=== PATIENT | male | born 1940 | race Caucasian/White ===

== ENCOUNTER 2017-04-28 14:56 | Emergency (ER) | payer MEDICARE, OTHER ==
[2017-04-28] MEDS ORDERED: Ondansetron INJ* 2 MG/ML VIAL IV ONE (16:34)
[2017-04-28] MEDS ORDERED: NS 0.9% 1000 ML* 1,000 ML IV ONE (16:34)
--- NOTE | 2017-04-28 17:06 | RAD ---
INDICATION: Syncope COMPARISON: Similar chest x-ray September 18, 2014 TECHNIQUE: Single AP portable view of the chest was obtained. FINDINGS: Image quality is compromised due to the relative inferiority of a portable chest x-ray. The heart and mediastinum exhibit normal size and contour. The lungs are grossly clear. There is no evidence of a large pleural effusion. Visualized bones are normal for the patient's age. IMPRESSION: No radiographic evidence for acute cardiopulmonary abnormality on this portable chest x-ray.
[2017-04-28 17:58] LABS: Hematocrit 49 % (42-52); Hemoglobin 15.8 g/dl (14.0-18.0); Mean Corpuscular HGB Conc 32 g/dl (31-36); Mean Corpuscular Hemoglobin 29 pg (27-31); Mean Corpuscular Volume 88 fL (80-94); Mean Platelet Volume 11 um3 (7.4-10.4); Red Blood Count 5.54 10^6/ul (4.0-5.4); Red Cell Distribution Width 15 % (10.5-15); White Blood Count 13.9 10^3/ul (3.5-10.8)
[2017-04-28 18:05] LABS: C Reactive Protein 6.01 mg/L (< 5.00); Lipase 22 U/L (11.0-82.0); Magnesium 1.5 mg/dL (1.9-2.7)
[2017-04-28 18:11] LABS: Digoxin < 0.2 ng/ml (0.8-2.0)
[2017-04-28 18:11] LABS: Urine Bacteria Absent (Absent); Urine Bilirubin Negative (Negative); Urine Glucose Negative (Negative); Urine Nitrite Negative (Negative)
[2017-04-28 18:49] LABS: ALT 12 U/L (7-52); AST 18 U/L (13-39); Albumin 3.9 g/dL (3.2-5.2); Alkaline Phosphatase 57 U/L (34-104); Anion Gap 11 mmol/L (2-11); BUN/Creatinine Ratio 24.7 (8-20); Blood Urea Nitrogen 18 mg/dL (6-24); CO2 Carbon Dioxide 21 mmol/L (22-32); Calcium 9.1 mg/dL (8.6-10.3); Chloride 103 mmol/L (101-111); EGFR African American 134.3 (>60); EGFR Non-African American 104.5 (>60); Globulin 2.7 g/dL (2-4); Glucose 113 mg/dL (70-100); Potassium 4.1 mmol/L (3.5-5.0); Sodium 135 mmol/L (133-145); Total Protein 6.6 g/dL (6.4-8.9)
--- NOTE | 2017-04-28 19:22 | RAD ---
CLINICAL HISTORY: Abdominal pain and diarrhea. Relevant surgical history includes cholecystectomy. COMPARISON: None TECHNIQUE: Noncontrast CT examination of the abdomen and pelvis from the lung bases through the initial tuberosities. FINDINGS: VISUALIZED LUNG BASES: There are mild hypoventilatory changes the bilateral lung bases. Otherwise the visualized lung bases are grossly clear. There is no pleural effusion. There is coarse atherosclerotic calcification at the aortic ring ABDOMEN AND PELVIS: Evaluation of the solid organs and vasculature is limited without intravenous contrast. The liver, spleen, pancreas and adrenal glands are grossly normal in appearance. The gallbladder is surgically absent. The kidneys are normal in appearance without focal mass, calcification or signs of hydronephrosis. Evaluation of the gastrointestinal tract is limited without oral contrast. The small and large bowel are not distended.The patient's normal appendix is identified in the right lower quadrant measuring 5 mm in diameter (coronal image 63). There are colonic diverticuli the distal colon becoming more concentrated the rectosigmoid colon. None exhibit focal inflammatory change including bowel wall thickening. There is no gross retroperitoneal or mesenteric lymphadenopathy. The prostate is enlarged measuring 5.9 x 6.4 x 6.7 cm. Faint coarse calcification is noted in the anterior prostate gland. There is moderate calcified atherosclerosis of the abdominal aorta extending into the bilateral iliac arteries. Multilevel degenerative changes of the lower thoracic and lumbar spine includes loss of intervertebral disc height, marginal osteophyte formation and vacuum disc phenomenon at L5/S1.There are no sinister bone lesions. IMPRESSION: 1. Diverticulosis without focal inflammatory changes associated with diverticulitis. 2. Coarse calcification of the aortoiliac arterial system extending to the bilateral femoral arteries. Please correlate to signs or symptoms of lower extremity arterial insufficiency. 3. Prostatomegaly. 4. Additional chronic, degenerative and iatrogenic findings as described in the body of the report.
[2017-04-28 20:34] LABS: Troponin I 0.03 ng/mL (<0.04)
[2017-04-28] MEDS ORDERED: Magnesium Sulfate 2 GM IV* 2 GM/50 ML BAG IVPB ONE (20:43)
[2017-04-28] MEDS ORDERED: Magnesium Oxide TAB* 400 MG PO ONE ×2 (20:52)
--- NOTE | 2017-04-28 20:58 | ED ---
Alexa Hagen Edward, scribed for Abebe Avalos MD on 04/28/17 at 1624 . Complex/Multi-Sys Presentation - HPI Summary HPI Summary: 76 y/o male presents to the ED c/o diarrhea and ABD discomfort starting at 06: 00 today. Initially the pt had diarrhea every 10 minutes; it went down to about once every hour at around 12:00 today. Denies blood in stool. A little after 02: 00 the pt had a syncopal episode. The pt was lying down when it started. Denies CP, palpitations. Pt is unsure if he had a seizure or just had LOC but believes it was not a seizure. Associated sx: chills, fatigue. PMHx epilepsy - pt took his seizure medication at around noon today, heart murmur. Past medications reviewed on visit. Sx gallbladder surgery. - History Of Current Complaint Chief Complaint: EDAbdPain Time Seen by Provider: 04/28/17 16:15 Hx Obtained From: Patient Onset/Duration: Lasting Hours, Still Present Timing: Intermittent, Lasting: - once every 10 minutes initially, now once every hour Location: Pain At: - ABD Character: Dull - ABD discomfort Associated Signs And Symptoms: Positive: Syncope, Diarrhea, Abdominal Pain, Other - chills, fatigue - Allergies/Home Medications Allergies/Adverse Reactions: Allergies Allergy/AdvReac Type Severity Reaction Status Date / Time Morphine Allergy Altered Verified 09/18/14 13:09 Mental Status Sulfa Drugs Allergy Unknown Verified 12/07/12 11:07 Reaction Details decongestants Allergy See Comment Uncoded 12/07/12 11:07 ENVIRONMENTAL/SEASONAL Allergy Congestion Uncoded 12/07/12 11:07 HAYFEVER PMH/Surg Hx/FS Hx/Imm Hx Previously Healthy: No Endocrine/Hematology History: Denies: Hx Bone Marrow Disease, Hx Sickle Cell Disease Cardiovascular History: Reports: Hx Coronary Artery Disease, Hx Hypertension, Other Cardiovascular Problems/Disorders - atrial fibrillation, CAD GI History: Comment Only: Other GI Disorders - admitted with diarrhea Musculoskeletal History: Reports: Hx Arthritis - bilateral hands,, Hx Tendonitis - possible bilateral shoulders Sensory History: Reports: Hx Cataracts, Hx Contacts or Glasses - glasses Denies: Hx Hearing Aid Opthamlomology History: Reports: Hx Cataracts, Hx Contacts or Glasses - glasses Neurological History: Reports: Hx Migraine, Hx Seizures - current admission Psychiatric History: Reports: Hx Anxiety - Cancer History Cancer Type, Location and Year: MELANOMA/SKIN CA - Surgical History Surgery Procedure, Year, and Place: (14 years ago) CHOLECYSTECTOMY, [facility]. (35- 40 years ago) MELANOMA REMOVED FROM LEFT FOREARM. TONSILLECTOMY A CHILD. MULTIPLE SKIN CANCERS(BASAL CELLS) REMOVED, OFFICE. GROWTH (LIPOMA) REMOVED FROM RIGHT ARM, [facility]. COLONOSCOPIES, [facility] Hx Anesthesia Reactions: No Infectious Disease History: No Infectious Disease History: Reports: History Other Infectious Disease - enteric precautions per dr Luna Denlola: Traveled Outside the [place] in Last 30 Days - Family History Known Family History: Positive: Cardiac Disease, Diabetes, Other - CVA, CA - Social History Alcohol Use: Rare Alcohol Amount: states wine twice/wk Hx Substance Use: No Substance Use Type: Reports: None Hx Tobacco Use: No Smoking Status (MU): Never Smoked Tobacco Review of Systems Positive: Chills, Fatigue Eyes: Negative ENT: Negative Cardiovascular: Negative Respiratory: Negative Positive: Abdominal Pain, Diarrhea Genitourinary: Negative Musculoskeletal: Negative Skin: Negative Positive: Syncope Psychological: Normal All Other Systems Reviewed And Are Negative: Yes Physical Exam Triage Information Reviewed: Yes Vital Signs On Initial Exam: Initial Vitals Temp Pulse Resp BP Pulse Ox 99.5 F 107 16 163/95 96 04/28/17 15:02 04/28/17 15:02 04/28/17 15:02 04/28/17 15:02 04/28/17 15:02 Vital Signs Reviewed: Yes Appearance: Positive: Well-Appearing, No Pain Distress Skin: Positive: Warm, Skin Color Reflects Adequate Perfusion, Dry Head/Face: Positive: Normal Head/Face Inspection Eyes: Positive: EOMI, SHARYN ENT: Positive: Other - oral mucosa dry Neck: Positive: Supple, Nontender Respiratory/Lung Sounds: Positive: Clear to Auscultation, Breath Sounds Present Cardiovascular: Positive: RRR, Murmur Abdomen Description: Positive: Nontender, Soft Bowel Sounds: Positive: Hypoactive Musculoskeletal: Positive: Normal, Strength/ROM Intact Neurological: Positive: Normal, Sensory/Motor Intact, Alert, Oriented to Person Place, Time, Other - Shaky Psychiatric: Positive: Affect/Mood Appropriate Diagnostics - Vital Signs Vital Signs Temp Pulse Resp BP Pulse Ox 04/28/17 15:02 99.5 F 107 16 163/95 96 - Laboratory Lab Results: Lab Results 04/28/17 04/28/17 04/28/17 Range/Units 17:22 17:22 17:22 WBC (3.5-10.8) 10^3/ul RBC (4.0-5.4) 10^6/ul Hgb (14.0-18.0) g/dl Hct (42-52) % MCV (80-94) fL MCH (27-31) pg MCHC (31-36) g/dl RDW (10.5-15) % Plt Count (150-450) 10^3/ul MPV (7.4-10.4) um3 Neut % (Auto) (38-83) % Lymph % (Auto) (25-47) % [place] % (Auto) (1-9) % Eos % (Auto) (0-6) % Baso % (Auto) (0-2) % Absolute Neuts (auto) (1.5-7.7) 10^3/ul Absolute Lymphs (auto) (1.0-4.8) 10^3/ul Absolute Monos (auto) (0-0.8) 10^3/ul Absolute Eos (auto) (0-0.6) 10^3/ul Absolute Basos (auto) (0-0.2) 10^3/ul Absolute Nucleated RBC 10^3/ul Nucleated RBC % INR (Anticoag Therapy) 3.16 H (0.89-1.11) APTT 38.4 H (26.0-36.3) seconds Sodium 135 (133-145) mmol/L Potassium 4.1 (3.5-5.0) mmol/L Chloride 103 (101-111) mmol/L Carbon Dioxide 21 L (22-32) mmol/L Anion Gap 11 (2-11) mmol/L BUN 18 (6-24) mg/dL Creatinine 0.73 (0.67-1.17) mg/dL Est GFR ( Amer) 134.3 (>60) Est GFR (Non-Af Amer) 104.5 (>60) BUN/Creatinine Ratio 24.7 H (8-20) Glucose 113 H (70-100) mg/dL Calcium 9.1 (8.6-10.3) mg/dL Magnesium 1.5 L (1.9-2.7) mg/dL Total Bilirubin 0.80 (0.2-1.0) mg/dL AST 18 (13-39) U/L ALT 12 (7-52) U/L Alkaline Phosphatase 57 (34-104) U/L Troponin I 0.03 (<0.04) ng/mL C-Reactive Protein 6.01 H (< 5.00) mg/L B-Natriuretic Peptide 265 H ( - 100) pg/mL Total Protein 6.6 (6.4-8.9) g/dL Albumin 3.9 (3.2-5.2) g/dL Globulin 2.7 (2-4) g/dL Albumin/Globulin Ratio 1.4 (1-3) Lipase 22 (11.0-82.0) U/L Urine Color Urine Appearance Urine pH (5-9) Ur Specific [place] (1.010-1.030) Urine Protein (Negative) Urine Ketones (Negative) Urine Blood (Negative) Urine Nitrate (Negative) Urine Bilirubin (Negative) Urine Urobilinogen (Negative) Ur Leukocyte Esterase (Negative) Urine WBC (Auto) (Absent) Urine RBC (Auto) (Absent) Urine Bacteria (Absent) Urine Glucose (Negative) Digoxin < 0.2 L (0.8-2.0) ng/ml Valproic Acid 56.0 (50-100) mcg/mL 04/28/17 04/28/17 Range/Units 17:22 17:41 WBC 13.9 H (3.5-10.8) 10^3/ul RBC 5.54 H (4.0-5.4) 10^6/ul Hgb 15.8 (14.0-18.0) g/dl Hct 49 (42-52) % MCV 88 (80-94) fL MCH 29 (27-31) pg MCHC 32 (31-36) g/dl RDW 15 (10.5-15) % Plt Count 152 (150-450) 10^3/ul MPV 11 H (7.4-10.4) um3 Neut % (Auto) 91.6 H (38-83) % Lymph % (Auto) 3.1 L (25-47) % [place] % (Auto) 4.7 (1-9) % Eos % (Auto) 0.1 (0-6) % Baso % (Auto) 0.5 (0-2) % Absolute Neuts (auto) 12.7 H (1.5-7.7) 10^3/ul Absolute Lymphs (auto) 0.4 L (1.0-4.8) 10^3/ul Absolute Monos (auto) 0.6 (0-0.8) 10^3/ul Absolute Eos (auto) 0 (0-0.6) 10^3/ul Absolute Basos (auto) 0.1 (0-0.2) 10^3/ul Absolute Nucleated RBC 0 10^3/ul Nucleated RBC % 0 INR (Anticoag Therapy) (0.89-1.11) APTT (26.0-36.3) seconds Sodium (133-145) mmol/L Potassium (3.5-5.0) mmol/L Chloride (101-111) mmol/L Carbon Dioxide (22-32) mmol/L Anion Gap (2-11) mmol/L BUN (6-24) mg/dL Creatinine (0.67-1.17) mg/dL Est GFR ( Amer) (>60) Est GFR (Non-Af Amer) (>60) BUN/Creatinine Ratio (8-20) Glucose (70-100) mg/dL Calcium (8.6-10.3) mg/dL Magnesium (1.9-2.7) mg/dL Total Bilirubin (0.2-1.0) mg/dL AST (13-39) U/L ALT (7-52) U/L Alkaline Phosphatase (34-104) U/L Troponin I (<0.04) ng/mL C-Reactive Protein (< 5.00) mg/L B-Natriuretic Peptide ( - 100) pg/mL Total Protein (6.4-8.9) g/dL Albumin (3.2-5.2) g/dL Globulin (2-4) g/dL Albumin/Globulin Ratio (1-3) Lipase (11.0-82.0) U/L Urine Color Yellow Urine Appearance Clear Urine pH 5.0 (5-9) Ur Specific [place] 1.015 (1.010-1.030) Urine Protein Negative (Negative) Urine Ketones Negative (Negative) Urine Blood 2+ H (Negative) Urine Nitrate Negative (Negative) Urine Bilirubin Negative (Negative) Urine Urobilinogen Negative (Negative) Ur Leukocyte Esterase Negative (Negative) Urine WBC (Auto) Absent (Absent) Urine RBC (Auto) Trace(0-2/hpf) (Absent) Urine Bacteria Absent (Absent) Urine Glucose Negative (Negative) Digoxin (0.8-2.0) ng/ml Valproic Acid (50-100) mcg/mL Result Diagrams: 04/28/17 17:22 04/28/17 17:22 Lab Statement: Any lab studies that have been ordered have been reviewed, and results considered in the medical decision making process. - Radiology CXR Xray Interpretation: No Acute Changes - No radiographic evidence for acute cardiopulmonary abnormality on this portable chest x-ray. Radiology Interpretation Completed By: Radiologist - ED PHYSICIAN REVIEWS AND AGREES - CT ABD/PEL CT CT Interpretation: Positive (See Comments) - 1. Diverticulosis without focal inflammatory changes associated with diverticulitis. 2. Coarse calcification of the aortoiliac arterial system extending to the bilateral femoral arteries. Please correlate to signs or symptoms of lower extremity arterial insufficiency. 3. Prostatomegaly. 4. Additional chronic, degenerative and iatrogenic findings as described in the body of the report. CT Interpretation Completed By: Radiologist - ED PHYSICIAN REVIEWS AND AGREES - EKG 1 EKG Interpretation: 16:07 - AFIB @ [address] DEPRESSION IN LATERAL LEADS Re-Evaluation - Re-Evaluation 1 Re-Evaluation Time: 20:30 Comment: Discuss plan of care Complex Multi-Symp Course/Dx Course Of Treatment: IMPROVED IN THE ED. TOLERATED PO IN THE ED. PATIENT REPORTS HE IS IN AND OUT OF AFIB. NO CHEST PAIN. F/U PMD; RETURN IF WORSE. NO CRITICAL CARE TIME. - Diagnoses Provider Diagnoses: Hypomagnesemia, Dehydration, Diarrhea, Syncope Discharge - Discharge Plan Condition: Stable Disposition: HOME Patient Education Materials: Acute Diarrhea (ED), Dehydration (ED), Syncope (ED ), Hypomagnesemia (ED) Referrals: Lynn Georges MD [Primary Care Provider] - Additional Instructions: FOLLOW UP WITH YOUR DOCTOR. RETURN TO THE EMERGENCY DEPARTMENT FOR ANY WORSENING OF YOUR CONDITION; CHEST PAIN, SHORTNESS OF BREATH, YOU PASS OUT, FEVER, PAIN, DEHYDRATION, YOU FEEL ILL , BLOOD IN YOUR STOOL OR QUESTIONS OR CONCERNS. The documentation as recorded by the Alexa beltran Edward accurately reflects the service I personally performed and the decisions made by me, Abebe Avalos MD.
[2017-04-28 22:01] VITALS: BP 129/63
--- NOTE | 2017-04-29 08:48 | ED ---
Progress - Progress Note Progress Note: Pt's fecal lactoferrin reveals + immunoassay. This correlates w/ pt's report of diarrhea. He was tx'd in ED and referred back to PCP for f/u. Re-Evaluation - Re-Evaluation 1 Re-Evaluation Time: 20:30 Comment: Discuss plan of care Course/Dx - Course Course Of Treatment: IMPROVED IN THE ED. TOLERATED PO IN THE ED. PATIENT REPORTS HE IS IN AND OUT OF AFIB. NO CHEST PAIN. F/U PMD; RETURN IF WORSE. NO CRITICAL CARE TIME. - Diagnoses Provider Diagnoses: Hypomagnesemia, Dehydration, Diarrhea, Syncope
== END 2017-04-28 22:02 | disposition home or self-care (01) ==
LOC: ED 14:56
DX: E83.42 Hypomagnesemia (principal); E86.0 Dehydration; R19.7 Diarrhea, unspecified; R55 Syncope and collapse; I25.10 Atherosclerotic heart disease of native coronary artery without angina pectoris; I10 Essential (primary) hypertension; I48.91 Unspecified atrial fibrillation; F41.9 Anxiety disorder, unspecified; Z85.820 Personal history of malignant melanoma of skin
CPT/HCPCS: 36415; 71010; 74176; 80053; 80162; 80164; 81003; 81015; 82270; 83630; 83690; 83735; 83880; 84484; 85025; 85610; 85730; 86140; 87040; 87045; 87046; 87328; 87329; 87493; 87899; 93005; 96360; 96374; 96375; 99282; J2405; J3475

== ENCOUNTER → 2017-07-08 08:22 | Day surgery (SDC) | payer MEDICARE, OTHER ==
[~2017-07-08 08:22] MED LIST: Acetaminophen TAB* 325 MG ONE; Diazepam TAB(*) 5 MG ONE; Heparin 2 UNITS/ML IVPREMIX* 3,000 ML IV ONE; Iohexol 300 (CONTRAST) 10 ML SDV ONE; Lidocaine 1% INJ* 10 MG/ML 30 ML SDV ONE; Midazolam* 1 MG/ML 10 ML VIAL (10 MG) ONE; NS 0.9% 1000 ML* 1,000 ML IV SCH; fentaNYL* 50 MCG/ML 2 ML VIAL (100 MCG VIAL) ONE
[2017-07-08 09:42] LABS: ABS Basophils 0.1 10^3/ul (0-0.2); ABS Eosinophils 0.1 10^3/ul (0-0.6); ABS Lymphocytes 2.6 10^3/ul (1.0-4.8); ABS Monocytes 0.8 10^3/ul (0-0.8); ABS Neutrophils 5.3 10^3/ul (1.5-7.7); ABS Nucleated RBC 0 10^3/ul; Eosinophil % 0.8 % (0-6); Hematocrit 47 % (42-52); Hemoglobin 15.9 g/dl (14.0-18.0); Mean Corpuscular HGB Conc 34 g/dl (31-36); Mean Corpuscular Hemoglobin 29 pg (27-31); Mean Corpuscular Volume 86 fL (80-94); Mean Platelet Volume 10 um3 (7.4-10.4); Nucleated Red Blood Cells % 0.1; Platelet Count 213 10^3/ul (150-450); Red Blood Count 5.47 10^6/ul (4.0-5.4); Red Cell Distribution Width 15 % (10.5-15); White Blood Count 8.8 10^3/ul (3.5-10.8)
[2017-07-08 10:02] LABS: INR 1.01 (0.77-1.02)
[2017-07-08 15:03] VITALS: BP 112/79
--- NOTE | 2017-07-09 03:37 | CATH ---
CARDIAC CATHETERIZATION REPORT: DATE OF PROCEDURE: 07/08/17 - [facility] CATH PROCEDURE: Cardiac catheterization. INDICATION: Aortic stenosis. The patient is a 76-year-old gentleman with a history of progressive aortic stenosis. He now has critical aortic stenosis and is a candidate for aortic valve replacement. PROCEDURE IN DETAIL: The patient was brought to the cardiac catheterization lab in a fasting state. Informed consent had been obtained prior to the procedure. All labs had been reviewed. The patient had been off his Coumadin for three days. His INR today was 1.01. The patient was placed supine on the catheterization table. Both femoral areas were cleaned and draped in the usual fashion. 1% lidocaine was used for local anesthesia. The right femoral artery was entered by a modified Seldinger technique and a 6-Lithuanian sheath introducer was placed. The patient underwent coronary angiography using a 6-Lithuanian JL4 catheter and 6-Lithuanian JR4 catheter. At the end of the procedure, a Mynx closure device was deployed. The patient tolerated the procedure well. There were no complications. A total of 1.6 minutes of fluoro time was used. A total of 40 cc of Omnipaque dye was used. FINDINGS: 1. Left main artery: The left main was normal in size. It bifurcated into the LAD and circumflex. There was no evidence of stenosis. 2. Left anterior descending artery: The LAD was normal in size. It gave off two diagonal vessels. There was no evidence of stenosis. 3. Left circumflex artery: The left circumflex artery was normal in size. It gave off two obtuse marginal branches. There was no evidence of stenosis. 4. Right coronary artery: The RCA was a large dominant vessel, gave off PDA. There was mild calcification to the proximal vessel. There was 40% stenosis to the proximal vessel. The remainder of the artery was without disease. IMPRESSION: 1. A 40% stenosis to the proximal right coronary artery. 2. No other significant coronary artery disease. 3. Mynx closure device to the right femoral artery. RECOMMENDATION: The patient will be referred for consideration of aortic valve replacement. [id number]/[facility] #: [id number] [facility] MED[facility] CENTERWilfredo
== END | disposition home or self-care (01) ==
LOC: CHICATH 08:22
PROVIDERS: ATTEND Specialist
DX: I08.3 Combined rheumatic disorders of mitral, aortic and tricuspid valves (principal); Z79.01 Long term (current) use of anticoagulants; I48.1 Persistent atrial fibrillation; I25.84 Coronary atherosclerosis due to calcified coronary lesion; R94.31 Abnormal electrocardiogram [ECG] [EKG]; Z87.891 Personal history of nicotine dependence; I10 Essential (primary) hypertension
CPT/HCPCS: 36415; 80048; 85025; 85610; 93454; A9270-GY; C1760; C1887; J1644; J2250; J3010; Q9967

== ENCOUNTER 2020-01-22 09:58 | Inpatient (IN) ==
[2020-01-22 10:38] LABS: ABS Eosinophils 0.1 10^3/ul (0-0.6); ABS Lymphocytes 1.6 10^3/ul (1.0-4.8); ABS Monocytes 0.6 10^3/ul (0-0.8); ABS Neutrophils 4.6 10^3/ul (1.5-7.7); Eosinophil % 0.8 %; Hematocrit 43 % (42-52); Hemoglobin 14.6 g/dL (14.0-18.0); Lymphocyte % 23.1 %; Mean Corpuscular HGB Conc 34 g/dL (31-36); Mean Corpuscular Hemoglobin 30 pg (27-31); Mean Corpuscular Volume 88 fL (80-94); Mean Platelet Volume 10.5 fL (7.4-10.4); Platelet Count 108 10^3/uL (150-450); Red Blood Count 4.84 10^6 /uL (4.18-5.48); Red Cell Distribution Width 15 % (10-15); White Blood Count 6.9 10^3/uL (3.5-10.8)
[2020-01-22 10:45] LABS: INR 1.15 (0.82-1.09)
[2020-01-22 10:55] LABS: ALT 12 U/L (7-52); AST 16 U/L (13-39); Albumin 3.7 g/dL (3.2-5.2); Albumin/Globulin Ratio 1.5 (1-3); Alkaline Phosphatase 76 U/L (34-104); Anion Gap 5 mmol/L (2-11); BUN/Creatinine Ratio 15.6 (8-20); Blood Urea Nitrogen 15 mg/dL (6-24); CO2 Carbon Dioxide 32 mmol/L (22-32); Chloride 100 mmol/L (101-111); EGFR African American 91.4 (>60); EGFR Non-African American 75.6 (>60); Globulin 2.5 g/dL (2-4); Glucose 168 mg/dL (70-100); Potassium 3.5 mmol/L (3.5-5.0); Sodium 137 mmol/L (135-145); Total Protein 6.2 g/dL (6.4-8.9)
[2020-01-22] MEDS ORDERED: Iohexol 350 (CONTRAST) 500 ML MDV IV ONE (10:57)
[2020-01-22 11:00] LABS: Troponin I 0.04 ng/mL (<0.03)
[2020-01-22] MEDS ORDERED: NS 0.9% 1000 ml BAG 1,000 ML IV ONE (11:01)
[2020-01-22] MEDS ORDERED: Ondansetron 4 mg VIAL 2 MG/ML 2 ml VIAL IV PRN (11:29)
[2020-01-22] MEDS ORDERED: Heparin 5000 UNITS/ML 1 mL VIAL IV SCH (13:00)
[2020-01-22 13:36] LABS: ABS Lymphocytes 1.5 10^3/ul (1.0-4.8); ABS Monocytes 0.6 10^3/ul (0-0.8); ABS Neutrophils 4.5 10^3/ul (1.5-7.7); Eosinophil % 0.7 %; Hematocrit 41 % (42-52); Hemoglobin 14.1 g/dL (14.0-18.0); Lymphocyte % 22.9 %; Mean Corpuscular HGB Conc 35 g/dL (31-36); Mean Corpuscular Hemoglobin 30 pg (27-31); Mean Corpuscular Volume 88 fL (80-94); Mean Platelet Volume 10.5 fL (7.4-10.4); Platelet Count 109 10^3/uL (150-450); Red Blood Count 4.64 10^6 /uL (4.18-5.48); Red Cell Distribution Width 15 % (10-15); White Blood Count 6.7 10^3/uL (3.5-10.8)
[2020-01-22 13:53] LABS: EGFR African American 125.4 (>60); EGFR Non-African American 103.6 (>60); HDL Cholesterol 34.8 mg/dL
[2020-01-22 13:55] LABS: Magnesium 1.7 mg/dL (1.9-2.7)
[2020-01-22] MEDS ORDERED: Heparin DRIP 25,000 UNITS BAG 25,000 UNITS/500 ML BAG IV SCH (15:30)
[2020-01-22 15:58] LABS: Urine Appearance Clear; Urine Bacteria Absent (Absent); Urine Bilirubin Negative (Negative); Urine Blood 1+ (Negative); Urine Color Straw; Urine Glucose Negative (Negative); Urine Ketones Negative (Negative); Urine Nitrite Negative (Negative); Urine Protein Negative (Negative); Urine Red Blood Cell Trace(0-2/hpf) (Absent); Urine Specific Gravity 1.017 (1.010-1.030); Urine Squamous Epithelial Cell Present (Absent); Urine Urobilinogen Negative (Negative); Urine White Blood Cell Absent (Absent)
[2020-01-22] MEDS ORDERED: Potassium Chlor 20 meq TAB.ER PO ONE (18:19)
[2020-01-22] MEDS ORDERED: Magnesium Sulfate IV 3 GM in NS 0.9% 100 ml BAG 100 ML IVPB ONE (18:20)
[2020-01-23 05:37] LABS: ABS Basophils 0.1 10^3/ul (0-0.2); ABS Eosinophils 0.1 10^3/ul (0-0.6); ABS Lymphocytes 3.1 10^3/ul (1.0-4.8); Eosinophil % 1.7 %; Hematocrit 41 % (42-52); Lymphocyte % 37.3 %; Mean Corpuscular HGB Conc 34 g/dL (31-36); Mean Corpuscular Hemoglobin 30 pg (27-31); Mean Corpuscular Volume 89 fL (80-94); Mean Platelet Volume 10.8 fL (7.4-10.4); Nucleated Red Blood Cells % 0.1; Platelet Count 102 10^3/uL (150-450); Red Blood Count 4.63 10^6 /uL (4.18-5.48); Red Cell Distribution Width 15 % (10-15); White Blood Count 8.2 10^3/uL (3.5-10.8)
[2020-01-23 05:51] LABS: Calcium 9.4 mg/dL (8.6-10.3); Potassium 3.9 mmol/L (3.5-5.0)
[2020-01-23 05:57] LABS: BUN/Creatinine Ratio 18.7 (8-20); EGFR African American 121.6 (>60); EGFR Non-African American 100.5 (>60)
[2020-01-23 10:06] LABS: Magnesium 2.2 mg/dL (1.9-2.7)
[2020-01-23 15:28] LABS: TSH Ultra Thyroid Stim Horm 3.42 mcIU/mL (0.34-5.60)
[2020-01-23 17:21] LABS: Folate 12.55 ng/mL (>3.99)
[2020-01-24 08:09] LABS: C Reactive Protein < 1.00 mg/L (<8.01)
[2020-01-24 08:14] LABS: Troponin I 0.05 ng/mL (<0.03)
[2020-01-24] MEDS ORDERED: Perflutren Lipid Microsphere 3 ML VIAL ONE (11:11)
[2020-01-24 15:34] VITALS: BP 130/83
== END 2020-01-24 18:04 | disposition home or self-care (01) | DRG 65 ==
LOC: ED 09:58 → MEDTELE 11:54
PROVIDERS: ADMIT Internal Medicine; ATTEND Internal Medicine

== ENCOUNTER 2020-03-18 15:20 | Observation (INO) ==
[2020-03-18 16:36] LABS: ABS Eosinophils 0.1 10^3/ul (0-0.6); ABS Lymphocytes 1.6 10^3/ul (1.0-4.8); ABS Monocytes 0.7 10^3/ul (0-0.8); ABS Neutrophils 4.4 10^3/ul (1.5-7.7); Eosinophil % 0.8 %; Hematocrit 38 % (42-52); Hemoglobin 12.9 g/dL (14.0-18.0); Lymphocyte % 23.5 %; Mean Corpuscular HGB Conc 34 g/dL (31-36); Mean Corpuscular Hemoglobin 30 pg (27-31); Mean Corpuscular Volume 90 fL (80-94); Mean Platelet Volume 10.5 fL (7.4-10.4); Platelet Count 139 10^3/uL (150-450); Red Blood Count 4.26 10^6 /uL (4.18-5.48); Red Cell Distribution Width 17 % (10-15); White Blood Count 6.8 10^3/uL (3.5-10.8)
[2020-03-18 16:41] LABS: INR 2.82 (0.82-1.09)
[2020-03-18 16:59] LABS: ALT 13 U/L (7-52); AST 17 U/L (13-39); Albumin 3.7 g/dL (3.2-5.2); Albumin/Globulin Ratio 1.5 (1-3); Alkaline Phosphatase 76 U/L (34-104); Anion Gap 5 mmol/L (2-11); BUN/Creatinine Ratio 25.6 (8-20); Blood Urea Nitrogen 22 mg/dL (6-24); CO2 Carbon Dioxide 29 mmol/L (22-32); Chloride 105 mmol/L (101-111); EGFR African American 103.8 (>60); EGFR Non-African American 85.8 (>60); Globulin 2.4 g/dL (2-4); Glucose 100 mg/dL (70-100); Potassium 4.2 mmol/L (3.5-5.0); Sodium 139 mmol/L (135-145); Total Protein 6.1 g/dL (6.4-8.9)
[2020-03-18 17:03] LABS: Troponin I 0.04 ng/mL (<0.03)
[2020-03-18] MEDS ORDERED: Ondansetron 4 mg VIAL 2 MG/ML 2 ml VIAL IV PRN (18:16)
[2020-03-18 20:26] LABS: Troponin I 0.04 ng/mL (<0.03)
[2020-03-19 00:24] LABS: Troponin I 0.03 ng/mL (<0.03)
[2020-03-19 06:23] LABS: ABS Eosinophils 0.1 10^3/ul (0-0.6); ABS Lymphocytes 2.5 10^3/ul (1.0-4.8); ABS Monocytes 0.9 10^3/ul (0-0.8); ABS Neutrophils 3.9 10^3/ul (1.5-7.7); Eosinophil % 1.7 %; Hematocrit 38 % (42-52); Hemoglobin 12.7 g/dL (14.0-18.0); Lymphocyte % 33.5 %; Mean Corpuscular HGB Conc 34 g/dL (31-36); Mean Corpuscular Hemoglobin 31 pg (27-31); Mean Corpuscular Volume 91 fL (80-94); Mean Platelet Volume 10.5 fL (7.4-10.4); Platelet Count 140 10^3/uL (150-450); Red Blood Count 4.14 10^6 /uL (4.18-5.48); Red Cell Distribution Width 17 % (10-15); White Blood Count 7.5 10^3/uL (3.5-10.8)
[2020-03-19 06:29] LABS: INR 2.37 (0.82-1.09)
[2020-03-19 06:39] LABS: BUN/Creatinine Ratio 19.8 (8-20); Calcium 9.7 mg/dL (8.6-10.3); EGFR African American 103.8 (>60); EGFR Non-African American 85.8 (>60); HDL Cholesterol 36.8 mg/dL; Potassium 3.8 mmol/L (3.5-5.0)
[2020-03-19 09:04] LABS: % Iron Saturation 21 % (15-55); Iron 65 ug/dL (50-212); Total Iron Binding Capacity 308 mcg/dL (250-450); Transferrin 220 mg/dL (203-362); Unsaturated Iron Binding < 293 ug/dL
[2020-03-19 09:24] LABS: Ferritin 134.9 ng/mL (24-336)
[2020-03-20] MEDS ORDERED: Regadenoson 0.4 MG/5 ML SYRINGE ONE (10:09)
[2020-03-20] MEDS ORDERED: Lorazepam PYXIS KEY ONE ×2 (10:10→11:19)
[2020-03-20] MEDS ORDERED: LORazepam 2 mg VIAL 1 ml ONE (10:11)
[2020-03-20] MEDS ORDERED: Ondansetron 4 mg VIAL 2 MG/ML 2 ml VIAL ONE (10:41)
[2020-03-20] MEDS ORDERED: Aminophylline 25 MG/ML VIAL ONE (11:07)
[2020-03-20 12:49] VITALS: BP 154/75
== END 2020-03-20 15:36 | disposition home or self-care (01) ==
LOC: MEDTELE 15:20 → ED 15:20 → MEDTELE 20:34
PROVIDERS: ADMIT Internal Medicine; ATTEND Internal Medicine

== ENCOUNTER 2022-08-09 14:35 | Inpatient (IN) ==
[2022-08-09] MEDS ORDERED: NS 0.9% 1000 ml BAG 1,000 ML IV ONE (15:44)
[2022-08-09] MEDS ORDERED: NS 0.9% 1000 ml BAG 1,000 ML IV SCH (15:45)
[2022-08-09] MEDS ORDERED: Acetaminophen IV 1 GM/100ML 1,000 MG/100 ML BAG IV ONE (15:45)
[2022-08-09 16:20] LABS: Hematocrit 31 % (42-52); Hemoglobin 10.3 g/dL (14.0-18.0); Mean Corpuscular HGB Conc 34 g/dL (31-36); Mean Corpuscular Hemoglobin 30 pg (27-31); Mean Corpuscular Volume 89 fL (80-94); Mean Platelet Volume 9.4 fL (7.4-10.4); Platelet Count 151 10^3/uL (150-450); Red Blood Count 3.47 10^6 /uL (4.18-5.48); Red Cell Distribution Width 14 % (10-15); White Blood Count 14.2 10^3/uL (3.5-10.8)
[2022-08-09 16:29] LABS: INR 4.02 (0.88-1.18)
[2022-08-09 16:30] LABS: Urine Appearance Cloudy; Urine Bilirubin Negative (Negative); Urine Blood 2+ (Negative); Urine Glucose Negative (Negative); Urine Ketones Negative (Negative); Urine Nitrite Negative (Negative); Urine Protein 2+(100 mg/dL) (Negative); Urine Urobilinogen Negative (Negative)
[2022-08-09 16:32] LABS: Urine Amorphous Crystals Present (Absent); Urine Bacteria Absent (Absent); Urine Red Blood Cell 3+(>10/hpf) (Absent); Urine White Blood Cell Trace(0-5/hpf) (Absent)
[2022-08-09 16:36] LABS: Urine Color Red
[2022-08-09 16:55] LABS: Albumin 3.5 g/dL (3.2-5.2); Albumin/Globulin Ratio 1.5 (1-3); C Reactive Protein 70.25 mg/L (<8.01); Calcium 9.6 mg/dL (8.6-10.3); Creatinine, Serum 1.11 mg/dL (0.67-1.17); Globulin 2.3 g/dL (2-4); Potassium 3.4 mmol/L (3.5-5.0); Total Bilirubin 0.8 mg/dL (0.2-1.0); Total Protein 5.8 g/dL (6.4-8.9); eGFR CKD-EPI 66.7 (>60)
[2022-08-09] MEDS ORDERED: Piperacillin/Tazobac ADVAN 3.375 GM in NS 0.9% 100 ml BAG 100 ML IV ONE (17:23)
[2022-08-09 17:25] LABS: ABS Lymphocytes 0.8 10^3/ul (1.0-4.8); ABS Monocytes 2.1 10^3/ul (0-0.8); ABS Neutrophils 11.2 10^3/ul (1.5-7.7); Lymphocyte % 5.7 %
[2022-08-09 17:53] LABS: High Sensitivity Troponin 1 Hr 129 pg/mL (<20)
[2022-08-09] MEDS ORDERED: Polyethylene Glycol 3350 17 GM PACKET PO PRN (18:37)
[2022-08-09] MEDS ORDERED: Zosyn per Pharmacy NOTE FOLLOW UP SCH (19:00)
[2022-08-09] MEDS: ZOSYN 3.375 GM Q8H per EXTENDED INFUSION IV SCH (20:56)
[2022-08-09] MEDS: Potassium Chlor 20 meq TAB.ER PO ONE ×2 (21:36→21:51)
[2022-08-09 21:37] LABS: High Sensitivity Troponin 3 Hr 184 pg/mL (<20)
[2022-08-10] MEDS: ZOSYN 3.375 GM Q8H per EXTENDED INFUSION IV SCH ×3 (06:16→22:32)
[2022-08-10 06:30] LABS: Hematocrit 30 % (42-52); Mean Corpuscular HGB Conc 34 g/dL (31-36); Mean Corpuscular Hemoglobin 30 pg (27-31); Mean Corpuscular Volume 88 fL (80-94); Mean Platelet Volume 9.2 fL (7.4-10.4); Platelet Count 146 10^3/uL (150-450); Red Blood Count 3.37 10^6 /uL (4.18-5.48); Red Cell Distribution Width 14 % (10-15); White Blood Count 20.1 10^3/uL (3.5-10.8)
[2022-08-10 06:36] LABS: INR 4.26 (0.88-1.18)
[2022-08-10 07:01] LABS: Calcium 9.2 mg/dL (8.6-10.3); Creatinine, Serum 0.98 mg/dL (0.67-1.17); Magnesium 1.5 mg/dL (1.9-2.7); Potassium 3.3 mmol/L (3.5-5.0); eGFR CKD-EPI 77.5 (>60)
[2022-08-10 07:21] LABS: ABS Basophils 0.1 10^3/ul (0-0.2); ABS Lymphocytes 0.8 10^3/ul (1.0-4.8); ABS Monocytes 2.5 10^3/ul (0-0.8); ABS Neutrophils 16.7 10^3/ul (1.5-7.7); Lymphocyte % 4.1 %
[2022-08-10] MEDS ORDERED: Potassium Chlor 20 meq TAB.ER PO ONE (10:49)
[2022-08-10] MEDS ORDERED: Magnesium Sulfate IV 3 GM in NS 0.9% 100 ml BAG 100 ML IVPB ONE (10:50)
[2022-08-10] MEDS ORDERED: Senna TAB 8.6 mg TAB PO PRN (11:08)
[2022-08-10] MEDS ORDERED: Azithromycin 500 mg/250 ml NS 500 MG/250 ML BAG IVPB SCH (15:00)
[2022-08-10] MEDS ORDERED: Warfarin - No Order Today **NOTE FOLLOW UP ONE (17:00)
[2022-08-10] MEDS: guaiFENesin 100 mg/5 ml LIQ unit dose cup PO PRN (17:00)
[2022-08-10] MEDS: Azithromycin 500 mg/250 ml NS 500 MG/250 ML BAG IVPB SCH (19:54)
[2022-08-11] MEDS: ZOSYN 3.375 GM Q8H per EXTENDED INFUSION IV SCH ×3 (05:59→23:55)
[2022-08-11 07:09] LABS: Hematocrit 28 % (42-52); Hemoglobin 9.6 g/dL (14.0-18.0); Mean Corpuscular HGB Conc 34 g/dL (31-36); Mean Corpuscular Hemoglobin 30 pg (27-31); Mean Corpuscular Volume 89 fL (80-94); Mean Platelet Volume 9.9 fL (7.4-10.4); Platelet Count 135 10^3/uL (150-450); Red Blood Count 3.19 10^6 /uL (4.18-5.48); Red Cell Distribution Width 14 % (10-15)
[2022-08-11 07:16] LABS: INR 4.06 (0.88-1.18)
[2022-08-11 07:25] LABS: Calcium 9.1 mg/dL (8.6-10.3); Creatinine, Serum 0.94 mg/dL (0.67-1.17); Magnesium 1.9 mg/dL (1.9-2.7); Potassium 3.2 mmol/L (3.5-5.0); eGFR CKD-EPI 81.4 (>60)
[2022-08-11 08:12] LABS: ABS Lymphocytes 1.2 10^3/ul (1.0-4.8); ABS Monocytes 2.5 10^3/ul (0-0.8); ABS Neutrophils 15.2 10^3/ul (1.5-7.7); Lymphocyte % 6.3 %
[2022-08-11] MEDS ORDERED: Potassium Chlor 10 meq TAB PO ONE (08:48)
[2022-08-11] MEDS: guaiFENesin 100 mg/5 ml LIQ unit dose cup PO PRN ×2 (08:54→19:25)
[2022-08-11] MEDS ORDERED: Dextran 70/Hypromellose Tears Eye Drops 15 ml BTL (for Artificials Tears) BOTH EYES PRN (12:29)
[2022-08-11] MEDS: Azithromycin 500 mg/250 ml NS 500 MG/250 ML BAG IVPB SCH (20:57)
[2022-08-12] MEDS: guaiFENesin 100 mg/5 ml LIQ unit dose cup PO PRN ×2 (04:22→10:45)
[2022-08-12] MEDS: ZOSYN 3.375 GM Q8H per EXTENDED INFUSION IV SCH ×2 (06:32→14:20)
[2022-08-12 06:52] LABS: INR 3.69 (0.88-1.18)
[2022-08-12 07:03] LABS: Hematocrit 27 % (42-52); Mean Corpuscular HGB Conc 34 g/dL (31-36); Mean Corpuscular Hemoglobin 30 pg (27-31); Mean Corpuscular Volume 89 fL (80-94); Mean Platelet Volume 9.7 fL (7.4-10.4); Platelet Count 155 10^3/uL (150-450); Red Blood Count 3.01 10^6 /uL (4.18-5.48); Red Cell Distribution Width 14 % (10-15); White Blood Count 15.1 10^3/uL (3.5-10.8)
[2022-08-12 07:10] LABS: ABS Lymphocytes 1.2 10^3/ul (1.0-4.8); ABS Monocytes 1.6 10^3/ul (0-0.8); ABS Neutrophils 12.2 10^3/ul (1.5-7.7); Eosinophil % 0.1 %; Lymphocyte % 8.2 %
[2022-08-12 07:11] LABS: Calcium 9.1 mg/dL (8.6-10.3); Creatinine, Serum 0.94 mg/dL (0.67-1.17); Potassium 3.5 mmol/L (3.5-5.0); eGFR CKD-EPI 81.4 (>60)
[2022-08-12] MEDS: Azithromycin 500 mg/250 ml NS 500 MG/250 ML BAG IVPB SCH (20:56)
[2022-08-13] MEDS: ZOSYN 3.375 GM Q8H per EXTENDED INFUSION IV SCH ×4 (00:12→21:33)
[2022-08-13 06:55] LABS: Hematocrit 26 % (42-52); Mean Corpuscular HGB Conc 34 g/dL (31-36); Mean Corpuscular Hemoglobin 31 pg (27-31); Mean Corpuscular Volume 90 fL (80-94); Mean Platelet Volume 9.6 fL (7.4-10.4); Platelet Count 145 10^3/uL (150-450); Red Blood Count 2.93 10^6 /uL (4.18-5.48); Red Cell Distribution Width 14 % (10-15); White Blood Count 13.1 10^3/uL (3.5-10.8)
[2022-08-13 06:58] LABS: ABS Lymphocytes 1.2 10^3/ul (1.0-4.8); ABS Monocytes 1.7 10^3/ul (0-0.8); ABS Neutrophils 10.1 10^3/ul (1.5-7.7); Eosinophil % 0.2 %; Lymphocyte % 9.3 %
[2022-08-13 07:09] LABS: Calcium 9.1 mg/dL (8.6-10.3); Creatinine, Serum 0.91 mg/dL (0.67-1.17); Magnesium 1.8 mg/dL (1.9-2.7); Potassium 3.4 mmol/L (3.5-5.0); eGFR CKD-EPI 84.7 (>60)
[2022-08-13] MEDS ORDERED: Potassium Chlor 20 meq TAB.ER PO ONE (07:15)
[2022-08-13 14:31] LABS: INR 3.14 (0.88-1.18)
[2022-08-14] MEDS: ZOSYN 3.375 GM Q8H per EXTENDED INFUSION IV SCH (05:26)
[2022-08-14 05:50] VITALS: BP 159/67
[2022-08-14 06:31] LABS: INR 2.97 (0.88-1.18)
== END 2022-08-14 09:50 | DRG 871 ==
LOC: EDHOLD 14:35 → ED 14:35 → MEDTELE 08-10 17:27 → SUATTDRO 08-11 11:12 → MED 08-12 20:05
PROVIDERS: ADMIT Internal Medicine; ATTEND Internal Medicine

== ENCOUNTER 2022-08-14 09:13 | Inpatient (IN) ==
[2022-08-14] MEDS ORDERED: Senna TAB 8.6 mg TAB PO PRN (10:20)
[2022-08-14] MEDS: Warfarin DAILY REMINDER **NOTE FOLLOW UP SCH (16:52)
[2022-08-15 06:34] LABS: INR 3.77 (0.88-1.18)
[2022-08-15] MEDS: Warfarin DAILY REMINDER **NOTE FOLLOW UP SCH (17:55)
[2022-08-16] MEDS: guaiFENesin 100 mg/5 ml LIQ unit dose cup PO PRN ×2 (00:39→21:28)
[2022-08-16 06:55] LABS: Hematocrit 27 % (42-52); Hemoglobin 9.2 g/dL (14.0-18.0); Mean Corpuscular HGB Conc 34 g/dL (31-36); Mean Corpuscular Hemoglobin 30 pg (27-31); Mean Corpuscular Volume 89 fL (80-94); Mean Platelet Volume 9.2 fL (7.4-10.4); Platelet Count 204 10^3/uL (150-450); Red Blood Count 3.02 10^6 /uL (4.18-5.48); Red Cell Distribution Width 14 % (10-15); White Blood Count 9.7 10^3/uL (3.5-10.8)
[2022-08-16 07:11] LABS: INR 2.29 (0.88-1.18)
[2022-08-16 07:41] LABS: Albumin 2.4 g/dL (3.2-5.2); Calcium 9.8 mg/dL (8.6-10.3); Creatinine, Serum 0.75 mg/dL (0.67-1.17); Globulin 2.4 g/dL (2-4); Potassium 3.9 mmol/L (3.5-5.0); Total Bilirubin 0.9 mg/dL (0.2-1.0); Total Protein 4.8 g/dL (6.4-8.9); eGFR CKD-EPI 90.7 (>60)
[2022-08-16 10:49] LABS: ABS Eosinophils 0.2 10^3/ul (0-0.6); ABS Lymphocytes 1.4 10^3/ul (1.0-4.8); ABS Monocytes 1.6 10^3/ul (0-0.8); ABS Neutrophils 6.6 10^3/ul (1.5-7.7); Eosinophil % 1.8 %; Lymphocyte % 14.3 %
[2022-08-16] MEDS: Warfarin DAILY REMINDER **NOTE FOLLOW UP SCH (17:22)
[2022-08-17 07:27] LABS: INR 2.1 (0.88-1.18)
[2022-08-17 08:08] LABS: Albumin 2.4 g/dL (3.2-5.2); Calcium 9.7 mg/dL (8.6-10.3); Creatinine, Serum 0.71 mg/dL (0.67-1.17); Globulin 2.4 g/dL (2-4); Potassium 3.9 mmol/L (3.5-5.0); Total Bilirubin 0.9 mg/dL (0.2-1.0); Total Protein 4.8 g/dL (6.4-8.9); eGFR CKD-EPI 92.2 (>60)
[2022-08-17] MEDS: guaiFENesin 100 mg/5 ml LIQ unit dose cup PO PRN ×2 (12:58→20:32)
[2022-08-17] MEDS: Warfarin DAILY REMINDER **NOTE FOLLOW UP SCH (20:21)
[2022-08-18 06:31] LABS: INR 2.36 (0.88-1.18)
[2022-08-18] MEDS: Warfarin DAILY REMINDER **NOTE FOLLOW UP SCH (17:09)
[2022-08-18] MEDS: guaiFENesin 100 mg/5 ml LIQ unit dose cup PO PRN (20:59)
[2022-08-19 06:59] LABS: INR 2.02 (0.88-1.18)
[2022-08-19 07:11] LABS: Albumin 2.5 g/dL (3.2-5.2); Calcium 9.7 mg/dL (8.6-10.3); Creatinine, Serum 0.77 mg/dL (0.67-1.17); Globulin 2.6 g/dL (2-4); Potassium 4.1 mmol/L (3.5-5.0); Total Bilirubin 0.9 mg/dL (0.2-1.0); Total Protein 5.1 g/dL (6.4-8.9); eGFR CKD-EPI 89.9 (>60)
[2022-08-19] MEDS: Warfarin DAILY REMINDER **NOTE FOLLOW UP SCH (17:00)
[2022-08-19] MEDS: guaiFENesin 100 mg/5 ml LIQ unit dose cup PO PRN (20:32)
[2022-08-20] MEDS: Warfarin DAILY REMINDER **NOTE FOLLOW UP SCH (18:11)
[2022-08-21 06:59] LABS: INR 2.44 (0.88-1.18)
[2022-08-21] MEDS: Warfarin DAILY REMINDER **NOTE FOLLOW UP SCH (18:54)
[2022-08-21] MEDS: guaiFENesin 100 mg/5 ml LIQ unit dose cup PO PRN (19:01)
[2022-08-22] MEDS: Warfarin DAILY REMINDER **NOTE FOLLOW UP SCH (16:59)
[2022-08-22] MEDS: AREDS PO SCH (20:12)
[2022-08-22] MEDS: guaiFENesin 100 mg/5 ml LIQ unit dose cup PO PRN (20:30)
[2022-08-23 08:35] LABS: ABS Eosinophils 0.1 10^3/ul (0-0.6); ABS Lymphocytes 1.7 10^3/ul (1.0-4.8); ABS Neutrophils 8.3 10^3/ul (1.5-7.7); Eosinophil % 0.9 %; Hematocrit 30 % (42-52); Hemoglobin 10.1 g/dL (14.0-18.0); Lymphocyte % 15.3 %; Mean Corpuscular HGB Conc 33 g/dL (31-36); Mean Corpuscular Hemoglobin 30 pg (27-31); Mean Corpuscular Volume 90 fL (80-94); Mean Platelet Volume 7.7 fL (7.4-10.4); Platelet Count 484 10^3/uL (150-450); Red Blood Count 3.37 10^6 /uL (4.18-5.48); Red Cell Distribution Width 15 % (10-15); White Blood Count 11.1 10^3/uL (3.5-10.8)
[2022-08-23 08:44] LABS: INR 2.01 (0.88-1.18)
[2022-08-23 09:02] LABS: Albumin 3.1 g/dL (3.2-5.2); Albumin/Globulin Ratio 0.9 (1-3); Calcium 10.3 mg/dL (8.6-10.3); Creatinine, Serum 0.78 mg/dL (0.67-1.17); Globulin 3.6 g/dL (2-4); Potassium 4.2 mmol/L (3.5-5.0); Total Bilirubin 0.8 mg/dL (0.2-1.0); Total Protein 6.7 g/dL (6.4-8.9); eGFR CKD-EPI 89.6 (>60)
[2022-08-23] MEDS: AREDS PO SCH ×2 (10:30→21:35)
[2022-08-23] MEDS: Warfarin DAILY REMINDER **NOTE FOLLOW UP SCH (17:33)
[2022-08-23] MEDS: guaiFENesin 100 mg/5 ml LIQ unit dose cup PO PRN (21:31)
[2022-08-24 06:26] LABS: ABS Basophils 0.1 10^3/ul (0-0.2); ABS Eosinophils 0.1 10^3/ul (0-0.6); ABS Lymphocytes 2.2 10^3/ul (1.0-4.8); ABS Monocytes 1.2 10^3/ul (0-0.8); ABS Neutrophils 7.1 10^3/ul (1.5-7.7); Eosinophil % 1.2 %; Hematocrit 27 % (42-52); Hemoglobin 9.3 g/dL (14.0-18.0); Lymphocyte % 20.4 %; Mean Corpuscular HGB Conc 35 g/dL (31-36); Mean Corpuscular Hemoglobin 31 pg (27-31); Mean Corpuscular Volume 89 fL (80-94); Mean Platelet Volume 7.8 fL (7.4-10.4); Nucleated Red Blood Cells % 0.1; Platelet Count 407 10^3/uL (150-450); Red Cell Distribution Width 15 % (10-15); White Blood Count 10.7 10^3/uL (3.5-10.8)
[2022-08-24] MEDS: AREDS PO SCH ×2 (08:04→21:48)
[2022-08-24] MEDS: Warfarin DAILY REMINDER **NOTE FOLLOW UP SCH (18:17)
[2022-08-24] MEDS: guaiFENesin 100 mg/5 ml LIQ unit dose cup PO PRN (22:17)
[2022-08-25] MEDS: AREDS PO SCH ×2 (08:36→21:15)
[2022-08-25] MEDS: Warfarin DAILY REMINDER **NOTE FOLLOW UP SCH (18:01)
[2022-08-25] MEDS: guaiFENesin 100 mg/5 ml LIQ unit dose cup PO PRN (21:18)
[2022-08-26 06:16] LABS: INR 1.99 (0.88-1.18)
[2022-08-26] MEDS: AREDS PO SCH ×2 (09:46→21:14)
[2022-08-26] MEDS: Warfarin DAILY REMINDER **NOTE FOLLOW UP SCH (17:14)
[2022-08-26] MEDS: guaiFENesin 100 mg/5 ml LIQ unit dose cup PO PRN (21:16)
[2022-08-27] MEDS: AREDS PO SCH ×2 (08:14→22:16)
[2022-08-27] MEDS ORDERED: Magnesium Hydroxide LIQ 30 ML UDC PO PRN (16:51)
[2022-08-27] MEDS: Warfarin DAILY REMINDER **NOTE FOLLOW UP SCH (20:14)
[2022-08-27] MEDS: guaiFENesin 100 mg/5 ml LIQ unit dose cup PO PRN (22:24)
[2022-08-28] MEDS ORDERED: Al Hydrox/Mg Hydrox/Simet LIQ 30 ML UDC PO ONE (05:30)
[2022-08-28 07:16] LABS: INR 2.93 (0.88-1.18)
[2022-08-28] MEDS: AREDS PO SCH ×2 (09:40→21:10)
[2022-08-28] MEDS: Warfarin DAILY REMINDER **NOTE FOLLOW UP SCH (18:04)
[2022-08-29 05:50] LABS: INR 3.42 (0.88-1.18)
[2022-08-29 06:46] VITALS: BP 167/74
[2022-08-29] MEDS: AREDS PO SCH (10:58)
== END 2022-08-29 16:20 | disposition home or self-care (01) | DRG 189 ==
LOC: PMRU 09:51
PROVIDERS: ADMIT Physical Medicine & Rehabilitation; ATTEND Physical Medicine & Rehabilitation